=== PATIENT | male | born 1950 | race Caucasian/White ===

== ENCOUNTER 2017-09-12 16:16 | Emergency (ER) | payer OTHER ==
[~2017-09-12] VITALS: Ht 182.9 cm; Wt 113.5 kg
[2017-09-12 16:17] VITALS: BP 163/95; PULSE 77; RESP 16; TEMP 99; O2SAT 95
--- NOTE | 2017-09-12 17:59 | RADRPT ---
EXAM DATE/TIME: 09/12/2017 17:54 [facility] COMPARISON: No previous studies available for comparison. INDICATIONS : Trauma; fall. RADIATION DOSE: 37.70 CTDIvol (mGy) MEDICAL HISTORY : None SURGICAL HISTORY : None. ENCOUNTER: Initial ACUITY: 1 day PAIN SCALE: 4/10 LOCATION: cranial TECHNIQUE: Multiple contiguous axial images were obtained of the head. Using automated exposure control and adjustment of the mA and/or kV according to patient size, radiation dose was kept as low as reasonably achievable to obtain optimal diagnostic quality images. DICOM format image data is av ailable electronically for review and comparison. FINDINGS: CEREBRUM: The ventricles are normal for age. No evidence of midline shift, mass lesion, hemorrha ge or acute infarction. No extra-axial fluid collections are seen. POSTERIOR FOSSA: The cerebellum and brainstem are intact. The 4th ventricle is midline. The cer ebellopontine angle is unremarkable. EXTRACRANIAL: The visualized portion of the orbits is intact. SKULL: The calvaria is intact. No evidence of skull fracture. CONCLUSION: Negative for acute process. No skull fracture. Geoffrey Ortega MD FACR on September 12, 2017 at 17:56 Board Certified Radiologist. This report was verified electronically.
--- NOTE | 2017-09-12 18:20 | RADRPT ---
EXAM DATE/TIME: 09/12/2017 17:54 [facility] COMPARISON: No previous studies available for comparison. INDICATIONS : Trauma; fall. RADIATION DOSE: 21.15 CTDIvol (mGy) MEDICAL HISTORY : None SURGICAL HISTORY : None. ENCOUNTER: Initial ACUITY: 1 day PAIN SCALE: 4/10 LOCATION: Bilateral neck TECHNIQUE: Volumetric scanning of the cervical spine was performed. Multiplanar reconstructions in the sagittal, coronal and oblique axial planes were performed. Using automated exposure control and adjustment o f the mA and/or kV according to patient size, radiation dose was kept as low as reasonably achievable to obtain optimal diagnostic quality images. DICOM format image data is available electronically f or review and comparison. FINDINGS: VERTEBRAE: Normal vertebral body height. ALIGNMENT: No evidence of subluxation. C2-C3: The bony spinal canal is normal in size. No evidence of disc bulge or herniation. The neural forami na are bilaterally patent. C3-C4: The bony spinal canal is normal in size. No evidence of disc bulge or herniation. The neural forami na are bilaterally patent. C4-C5: The bony spinal canal is normal in size. No evidence of disc bulge or herniation. The neural forami na are bilaterally patent. C5-C6: The bony spinal canal is normal in size. No evidence of disc bulge or herniation. The neural forami na are bilaterally patent. C6-C7: The bony spinal canal is normal in size. No evidence of disc bulge or herniation. The neural forami na are bilaterally patent. C7-T1: The bony spinal canal is normal in size. No evidence of disc bulge or herniation. The neural forami na are bilaterally patent. CONCLUSION: Normal examination. Og Workman MD on September 12, 2017 at 18:17 Board Certified Radiologist. This report was verified electronically.
--- NOTE | 2017-09-12 20:24 | PD ---
HPI Chief Complaint: Head Injury Time Seen by Provider: 20:21 Travel History International Travel<30 days: No Contact w/Intl Traveler<30days: No Traveled to known affect area: No History of Present Illness HPI 66-year-old male with PMH of HTN presents to the ED for evaluation of facial lacerations after fall from standing. Patient states that he tripped over an uneven sidewalk and landed on wood. He endorses hitting his head but denies loss of consciousness. On presentation he denies headache, dizziness, vision changes, neck pain, back pain, abdominal pain, chest pain, shortness breath, nausea, vomiting, numbness, tingling, weakness, limitations to range of motion of the extremities.He is unsure of his last tetanus immunization. [facility] Social History Tobacco Use: No Allergies-Medications (Allergen,Severity, Reaction): Coded Allergies: No Known Allergies (Unverified , 09/12/17) Review of Systems Except as stated in HPI: all other systems reviewed are Neg Physical Exam Narrative GENERAL: Well-nourished, well-developed white male in no acute distress. SKIN: Warm and dry. There is a 2 cm laceration lateral to the right eye and a 2 cm stellate laceration of the midline of the top lip. This does not communicate with the oral cavity. Thorough evaluation reveals no edema, ecchymosis, abrasion, or laceration of the skin. HEAD: Normocephalic. Atraumatic. No raccoon eyes or nathan sign. No tenderness to palpation of the skull or facial bones. No bony step-offs. No malocclusion of the teeth. No movement of the alveolar ridge. EYES: No scleral icterus. No injection or drainage. PERRLA. EOMI. ENT: Pearly nick tympanic membrane is bilaterally. Nasal mucosa is moist. Oropharynx without erythema, edema or exudate. NECK: Supple, trachea midline. No JVD or lymphadenopathy. No midline tenderness to palpation. Patient retains full, active, painless range of motion of the neck. CARDIOVASCULAR: Regular rate and rhythm without murmurs, gallops, or rubs. 2+ DP and radial pulses bilaterally. RESPIRATORY: Breath sounds clear and equal bilaterally. No accessory muscle use. GASTROINTESTINAL: Abdomen soft, non-tender, nondistended. + Bowel sounds MUSCULOSKELETAL: No cyanosis, or edema. No tenderness to palpation or limitations to range of motion of the joints of the upper and lower extremities bilaterally. NEUROLOGICAL: Awake and alert. Cranial nerves II through XII intact. Motor and sensory grossly within normal limits. 5/5 muscle strength in all muscle groups. Normal speech. BACK: Nontender without obvious deformity. No CVA tenderness. No midline tenderness. Data Data Last Documented VS Vital Signs Date Time Temp Pulse Resp B/P (MAP) Pulse Ox O2 Delivery O2 Flow Rate FiO2 09/12/17 16:17 99.0 77 16 163/95 (117) 95 Room Air Orders Orders Ct Brain W/O Iv Contrast(Rout) (09/12/17 ) Ct Cerv Spine W/O Contrast (09/12/17 ) Lidocai-Epi 2%-1:100,000 Inj (Xylocaine- (09/12/17 21:00) Tetanus/Diphtheria Tox Adult (Tetanus/Di (09/12/17 21:00) MDM Medical Decision Making Medical Screen Exam Complete: Yes Emergency Medical Condition: Yes Differential Diagnosis Laceration versus abrasion versus contusion versus facial fracture versus skull fracture versus ICH versus other Narrative Course 66-year-old male with PMH of HTN presents to the ED for evaluation of facial lacerations after fall from standing. Patient states that he tripped over an uneven sidewalk and landed on wood. He endorses hitting his head but denies loss of consciousness. He is unsure of his last tetanus immunization. Vitals reviewed. Physical exam reveals laceration lateral to the right eye and a laceration of the midline of the upper lip. Exam is otherwise unremarkable. No focal neuro deficits noted. Tetanus immunization was ordered. I offered the patient pain medications which he declined. CT of the C-spine and skull negative for acute pathology per radiology read. Laceration repair performed by the oncoming provider. Please see their note for those details. Patient instructed to keep the wounds clean, dry, covered, return to the ED or PCP in 5- 7 days for suture removal, sooner if signs of infection occur. He is instructed to return to normal, gentle activity as tolerated, follow-up with primary care provider. He indicated understanding of the instructions and is agreeable to the care plan. He is stable and discharged home. Diagnosis Primary Impression: Facial laceration Qualified Codes: S01.81XA - Laceration without foreign body of other part of head, initial encounter Additional Impressions: Immunization, tetanus toxoid Fall from standing Qualified Codes: W19.XXXA - Unspecified fall, initial encounter Closed head injury Qualified Codes: S09.90XA - Unspecified injury of head, initial encounter Referrals: Primary Care Physician Patient Instructions: Care For Your Stitches (ED), Chronic Post Traumatic Headache (ED), Facial Laceration (ED), General Instructions Additional Instructions: Rest, hydrate. You may bathe normally. Do not submerge the wound. After bathing pat of wound dry. Allow the wound to air dry for 10-15 minutes. Apply a thin layer of antibiotic ointment and a clean, dry dressing. Utilize [id number] pain medications, as described on the label, as needed for headache, aches and pains. Suture removal in 5-7 days.. Follow-up with your primary care provide. Return to the ED for any urgent or emergent medical condition. Disposition: 01 DISCHARGE HOME Condition: Stable Viviana Yuan Sep 12, 2017 20:24
[2017-09-12 21:00] VITALS: BP 144/74; PULSE 88; RESP 18; O2SAT 99
[2017-09-12] MEDS ORDERED: TETANUS/DIPHTHERIA TOXOID ADULT 0.5 ML VIAL IM ONE (21:00)
[2017-09-12] MEDS ORDERED: LIDOCAINE 2%/EPINEPHrine 1:100,000 20ML MDV NERV BLOCK ONE (21:00)
--- NOTE | 2017-09-12 21:29 | PD ---
Physical Exam Date Seen by Provider: Sep 12, 2017 Time Seen by Provider: 21:25 Narrative 66-year-old male status post fall with laceration to the upper lip and right restorationist region. I was asked by Corwin Yuan PAC, to see this patient for laceration repair. Please see her note for final disposition and discharge instructions. Data Data Last Documented VS Vital Signs Date Time Temp Pulse Resp B/P (MAP) Pulse Ox O2 Delivery O2 Flow Rate FiO2 09/12/17 16:17 99.0 77 16 163/95 (117) 95 Room Air Orders Orders Ct Brain W/O Iv Contrast(Rout) (09/12/17 ) Ct Cerv Spine W/O Contrast (09/12/17 ) Lidocai-Epi 2%-1:100,000 Inj (Xylocaine- (09/12/17 21:00) Tetanus/Diphtheria Tox Adult (Tetanus/Di (09/12/17 21:00) MDM Medical Record Reviewed: Yes Supervised Visit with MIKE: Yes Procedures Procedure Narrative LACERATION #1 LOCATION: Central upper lip LENGTH: 3 cm NUMBER OF STITCHES/SARAHI: 2 interrupted horizontal mattress, 5 interrupted simple sutures REPAIR: The area of the laceration was prepped with Betadine and sterilely draped. The laceration was infiltrated with 3 mL was 1% lidocaine with epi. The wound was copiously irrigated and explored without evidence of foreign body , tendon injury or neurovascular injury. The wound was closed using 6-0 Prolene. This was a single layer repair. . The patient was advised to keep the wound site clean and dry. Patient tolerated the procedure well. Sutures should remain for 7 days. LACERATION LOCATION: Right lower temporal region LENGTH: 2 NUMBER OF STITCHES/SARAHI: 5 simple interrupted REPAIR: The area of the laceration was prepped with Betadine and sterilely draped. The laceration was infiltrated with 2.5 mL 1% lidocaine with epi. The wound was copiously irrigated and explored without evidence of foreign body, tendon injury or neurovascular injury. The wound was closed using 6-0 Prolene. This was a single layer repair. The patient was advised to keep the wound site clean and dry. Patient tolerated the procedure well. Diagnosis Primary Impression: Facial laceration Qualified Codes: S01.81XA - Laceration without foreign body of other part of head, initial encounter Additional Impressions: Fall from standing Qualified Codes: W19.XXXA - Unspecified fall, initial encounter Closed head injury Qualified Codes: S09.90XA - Unspecified injury of head, initial encounter Immunization, tetanus toxoid Referrals: Primary Care Physician Patient Instructions: General Instructions, Care For Your Stitches (ED), Facial Laceration (ED), Chronic Post Traumatic Headache (ED) Departure Forms: Tests/Procedures Additional Instruction: Rest, hydrate. You may bathe normally. Do not submerge the wound. After bathing pat of wound dry. Allow the wound to air dry for 10-15 minutes. Apply a thin layer of antibiotic ointment and a clean, dry dressing. Utilize [id number] pain medications, as described on the label, as needed for headache, aches and pains. Suture removal in 5-7 days.. Follow-up with your primary care provide. Return to the ED for any urgent or emergent medical condition. Disposition: 01 DISCHARGE HOME Condition: Stable Taras Wang Sep 12, 2017 21:29
== END 2017-09-12 21:34 | disposition home or self-care (01) ==
LOC: NEPK 16:16
DX: S01.81XA Laceration without foreign body of other part of head, initial encounter (principal); W19.XXXA Unspecified fall, initial encounter; I10 Essential (primary) hypertension
CPT/HCPCS: 12011; 12013; 70450; 72125; 90471; 90714